=== PATIENT | female | born 1965 | race Hispanic/Latino ===

== ENCOUNTER 2017-04-15 22:22 | Emergency (ER) | payer BC ==
[2017-04-15 22:30] VITALS: BP 156/97; PULSE 81; RESP 18; TEMP 98.3; O2SAT 98
--- NOTE | 2017-04-15 22:58 | ED PDOC ---
Upper Extremity Pain/Injury Time Seen by Provider: 04/15/17 22:33 Chief Complaint (Nursing): Trauma Chief Complaint (Provider): Left Arm and Shoulder Pain History Per: Patient History/Exam Limitations: no limitations Onset/Duration Of Symptoms: Mins Current Symptoms Are (Timing): Still Present Additional Complaint(s): Joe Winslow is a 52 year old female that presents to the ED with a chief complaint of left arm and shoulder pain that began as a direct result of a fall earlier tonight. Patient reports that when EMS picked her up they did not ice her arm, which upset her. PMD: Dr. Abernathy Past Medical History Reviewed: Historical Data, Nursing Documentation, Vital Signs Vital Signs: Last Vital Signs Temp 98.3 F 04/15/17 22:28 Pulse 81 04/15/17 22:28 Resp 18 04/15/17 22:28 BP 156/97 H 04/15/17 22:28 Pulse Ox 98 04/15/17 22:28 - Medical History PMH: No Chronic Diseases - Surgical History Surgical History: No Surg Hx - Family History Family History: States: Unknown Family Hx - Home Medications Home Medications: Ambulatory Orders Medication Instructions Recorded oxyCODONE/Acetaminophen [Percocet 1 tab PO Q6 PRN #15 tab 04/16/17 5/325 mg Tab] - Allergies Allergies/Adverse Reactions: Allergies Allergy/AdvReac Type Severity Reaction Status Date / Time Penicillins Allergy RASH Verified 04/15/17 22:28 Review of Systems Musculoskeletal: Positive for: Shoulder Pain (left shoulder), Arm Pain (left arm ) Physical Exam - Reviewed Nursing Documentation Reviewed: Yes Vital Signs Reviewed: Yes - Physical Exam Appears: Positive for: Non-toxic, Uncomfortable (due to pain) Head Exam: Positive for: ATRAUMATIC, NORMOCEPHALIC Skin: Positive for: Normal Color, Warm Eye Exam: Positive for: EOMI, Normal appearance, PERRL Cardiovascular/Chest: Positive for: Regular Rate, Rhythm. Negative for: Murmur Respiratory: Positive for: Normal Breath Sounds. Negative for: Wheezing Extremity: Negative for: Normal ROM (Normal ROM everywhere except in left shoulder, which is limited due to pain), Deformity, Other (No ecchymosis left arm or shoulder) Neurologic/Psych: Positive for: Alert, Oriented. Negative for: Motor/Sensory Deficits - ECG O2 Sat by Pulse Oximetry: 98 (RA) Pulse Ox Interpretation: Normal Medical Decision Making Medical Decision Making: Impression: Left Shoulder Injury, rule out fracture or dislocation Plan: * X-Ray Left Arm * X-Ray Left Elbow * X-Ray Left Shoulder * Morphine 4 mg IV * Reevaluation 0029 XR shows humeral head fracture, non-displaced. Elbow normal. Humerus XR shows same fracture. Sling applied by technical administrative assistant Scribe Attestation: Documented by Nilsa Jenkins, acting as a scribe for Rajnan Turner MD. Provider Scribe Attestation: All medical record entries made by the Scribe were at my direction and personally dictated by me. I have reviewed the chart and agree that the record accurately reflects my personal performance of the history, physical exam, medical decision making, and the department course for this patient. I have also personally directed, reviewed, and agree with the discharge instructions and disposition. Disposition - Clinical Impression Clinical Impression: Humerus head fracture - Patient ED Disposition Is Patient to be Admitted: No Doctor Will See Patient In The: Office Counseled Patient/Family Regarding: Studies Performed, Diagnosis, Need For Followup - Disposition Referrals: Phong Garcia III, MD [Staff Provider] - Disposition: Routine/Home Disposition Time: 00:25 Condition: GOOD Additional Instructions: Take your medications as instructed. Follow up with your PCP in 2-3 days. Follow up with orthopedist within 1 week. Prescriptions: oxyCODONE/Acetaminophen [Percocet 5/325 mg Tab] 1 tab PO Q6 PRN #15 tab PRN Reason: Pain, Severe (8-10) Instructions: Arm Fracture in Adults (ED)
--- NOTE | 2017-04-16 11:15 | RAD ---
PROCEDURE: Radiographs of the Left Shoulder HISTORY: shoulder pain COMPARISON: No prior. FINDINGS: BONES: There is an acute nondisplaced fracture in the greater tuberosity of the humerus. Bone alignment is normal. JOINTS: Normal. Glenohumeral and acromioclavicular joints preserved. No osteoarthritis. SOFT TISSUES: Normal. OTHER FINDINGS: None. IMPRESSION: Acute nondisplaced fracture in the greater tuberosity of the humerus.
--- NOTE | 2017-04-16 11:17 | RAD ---
PROCEDURE: Radiographs of the left humerus. HISTORY: Arm pain COMPARISON: None. FINDINGS: BONES: There is an acute nondisplaced fracture in the greater tuberosity of the humerus. Bone alignment and mineralization are normal. SOFT TISSUES: Normal. OTHER FINDINGS: None. IMPRESSION: Acute nondisplaced fracture in the greater tuberosity of the humerus.
--- NOTE | 2017-04-16 11:38 | RAD ---
PROCEDURE: Radiographs of the left elbow. HISTORY: arm pain COMPARISON: No prior. FINDINGS: BONES: Bone alignment and mineralization are normal. There is no acute displaced fracture or bone destruction JOINTS: Normal. No osteoarthritis. SOFT TISSUES: Normal. JOINT EFFUSION: None. OTHER FINDINGS: None IMPRESSION: No acute fracture or dislocation.
== END 2017-04-16 00:46 | disposition home or self-care (01) ==
LOC: H.ER 22:22
DX: S42.292A Other displaced fracture of upper end of left humerus, initial encounter for closed fracture (principal); W19.XXXA Unspecified fall, initial encounter
CPT/HCPCS: 73030; 73060; 73070; 96374; 96375; 99283; J2060; J2270